=== PATIENT | male | born 2005 | race Caucasian/White ===

== ENCOUNTER 2023-08-27 19:58 | Emergency (ER) | payer BC ==
[~2023-08-27] VITALS: Ht 177.8 cm; Wt 72.7 kg
[2023-08-27 20:06] VITALS: TEMP 98
[2023-08-27 23:24] LABS: BASO % 0.5 % (0.0-2.0); EOS # 0.1 K/mm3 (0.0-0.7); EOS % 0.7 % (0.0-4.0); GRAN # 5.1 K/mm3 (1.4-6.5); GRAN % 62.9 % (42.2-75.2); HEMATOCRIT 46.4 % (36.0-47.0); HEMOGLOBIN 16.1 g/dl (12.5-16.1); LYMPH # 2.3 K/mm3 (1.2-3.4); LYMPH % 28.6 % (20.0-51.0); MEAN CELL VOLUME 90 fl (80.0-95.0); MEAN CORPUSCULAR HEMOGLOBIN 31 pg (26-32); MEAN CORPUSCULAR HGB CONC 35 g/dl (33.0-37.0); MEAN PLATELET VOLUME 8.6 fl (7.4-10.4); MONO # 0.6 K/mm3 (0.1-0.6); MONO % 7.1 % (1.7-9.3); PLATELET COUNT 229 K/mm3 (130-400); RED BLOOD COUNT 5.13 M/mm3 (4.20-5.60); REDCELL DISTRIBUTION WIDTH-CV 12.1 % (11.5-14.5)
[2023-08-27 23:39] LABS: LIPASE 53 U/L (8-78)
[2023-08-27] MEDS ORDERED: hydrOXYzine HCl 25 MG TAB PO ONE (23:45)
[2023-08-27] MEDS ORDERED: Acetaminophen 500 MG TAB PO ONE (23:45)
[2023-08-27] MEDS ORDERED: Ketorolac 30 MG/ML VIAL IV ONE (23:45)
[2023-08-27 23:46] LABS: TROPONIN-I < 0.010 ng/mL (0.00-0.033)
[2023-08-28 00:13] LABS: ALBUMIN 4.5 gm/dL (3.5-5.0); ALKALINE PHOSPHATASE 61 U/L (40-150); ANION GAP 12 mmol/L (7-16); AST,SGOT 11 U/L (5-34); BILIRUBIN,TOTAL 0.5 mg/dL (0.2-1.2); BLOOD UREA NITROGEN 10 mg/dL (9-21); CALCIUM 9.6 mg/dL (8.4-10.2); CARBON DIOXIDE 21 mmol/L (22-29); CHLORIDE 108 mmol/L (98-107); CREATININE, serum 0.83 mg/dL (0.72-1.25); GLUCOSE 82 mg/dL (70-99); POTASSIUM 3.7 mmol/L (3.5-4.5); SODIUM 141 mmol/L (136-145); TOTAL PROTEIN 6.8 gm/dL (6.2-8.1)
[2023-08-28 00:14] LABS: ALANINE AMINOTRANSFERASE < 6 U/L (0-55)
[2023-08-28 00:38] VITALS: BP 114/80; PULSE 52
[2023-08-29] MEDS ORDERED: BIOTIN2500 MCG PO (10:04)
[2023-08-29] MEDS ORDERED: ZYRTEC-D 5 MG-11 TER PO (10:05)
== END 2023-08-28 00:38 | disposition home or self-care (01) ==
LOC: COL.ER 19:58
PROVIDERS: Nurse Practitioner Primary Care
DX: R07.89 Other chest pain (principal)
CPT/HCPCS: J1885

== ENCOUNTER 2023-08-28 14:08 | Emergency (ER) | payer BC ==
[~2023-08-28] VITALS: Ht 177.8 cm; Wt 72.7 kg
[2023-08-28 21:57] VITALS: BP 120/73; PULSE 64; TEMP 98.2
[2023-08-29] MEDS ORDERED: BIOTIN2500 MCG PO (10:04)
[2023-08-29] MEDS ORDERED: ZYRTEC-D 5 MG-11 TER PO (10:05)
== END 2023-08-28 21:57 | disposition home or self-care (01) ==
LOC: COL.ER 14:08
DX: J93.83 Other pneumothorax (principal)

== ENCOUNTER 2023-08-29 09:39 | Emergency (ER) | payer BC ==
[~2023-08-29] VITALS: Ht 177.8 cm; Wt 72.7 kg
[2023-08-29] MEDS ORDERED: BIOTIN2500 MCG PO (10:04)
[2023-08-29] MEDS ORDERED: ZYRTEC-D 5 MG-11 TER PO (10:05)
[2023-08-29 11:15] VITALS: TEMP 98
[2023-08-29 12:42] VITALS: BP 120/81; PULSE 59
== END 2023-08-29 12:42 | disposition home or self-care (01) ==
LOC: COL.ER 09:39
DX: J93.83 Other pneumothorax (principal)

== ENCOUNTER 2023-10-04 21:24 | Inpatient (IN) | payer BC ==
[~2023-10-04] VITALS: Ht 177.8 cm; Wt 73.1 kg
[~2023-10-04 21:24] MED LIST: BIOTIN2500 MCG PO; ZYRTEC-D 5 MG-11 TER PO
[2023-10-05] VITALS (8 sets, daily range): BP systolic 110–129; BP diastolic 57–73; PULSE 44–63; TEMP 97.5–98
[2023-10-05] MEDS ORDERED: HYDROmorphone 0.5 MG/0.5 ML SYRINGE IV PRN (00:30)
[2023-10-05] MEDS ORDERED: LR 1,000 ML IV SCH (00:30)
[2023-10-05] MEDS ORDERED: Ibuprofen 600 MG TAB PO PRN (00:30)
[2023-10-05] MEDS ORDERED: oxyCODONE/Acetaminophen 5-325 MG TAB PO PRN (00:30)
[2023-10-05] MEDS ORDERED: Ondansetron 4 MG/2 ML VIAL IV PRN (00:30)
--- NOTE | 2023-10-05 03:55 | NUR ---
Patient arrived to the floor at 0206 with chest tube attached to water seal cannister, hooked to suction with occasional bubbling seen in chamber,A/Ox4, medrec reviewed, admission assessment done, attempted to do admission intake multiple times but unable to save it d/t computer error, rated his pain at 5/10, medicated with percocet, hospital policies orientated, denies further needs, call light and personal items within reach, will continue to monitor.
--- NOTE | 2023-10-05 06:21 | NUR ---
Patient resting in bed, eyes closed, looks comfortable,
--- NOTE | 2023-10-05 07:00 | NUR ---
Pt doing ok at shift change, just appears tired. Pt denies any needs at this time. Chest tube hooked to suction at this time
--- NOTE | 2023-10-05 08:30 | NUR ---
Pt sleeping off and on. Explained beginning of the day/shift is always busy, but then should hopefully be able to let him rest by mid morning. Dr Bethea has been in to see pt. Chest tube no longer hooked to suction.
--- NOTE | 2023-10-05 10:10 | NUR ---
PT resting with eyes closed, even non labored breathing.
--- NOTE | 2023-10-05 13:50 | NUR ---
Pt doing well at this time. His eating a boxed lunch. He stated he waited too long to order and was then getting hungry and not wanting to wait 45 minutes. Explained meals can be ordered at anytime and then scheduled to arrive if that would work better for him. Pt stated that his pain is 1-2 at rest and then goes to 5/10 with deep breaths. Pts mom at bedside and has been here for a while now. Pt denies any other needs, call light within reach
--- NOTE | 2023-10-05 14:00 | NUR ---
PATIENT RESTING UP IN BED WITH MOM AT BEDSIDE. TOLERATING GENERAL DIET. DENIES NEED FOR PAIN MEDS. APPLIED SCD'S TO BLE. NO OTHER NEEDS. CALL LIGHT IN REACH.
--- NOTE | 2023-10-05 14:06 | NUR ---
Social work student met with patient and mother Jesusita (ph#:[phone]) at bedside to discuss discharge planning. Patient lives in [place] and goes to [facility] for primary care. Patient also obtains his medications from [facility] with no difficulties affording them. Patient's mother reported she and his father are patient's DPOA-HC. Social work student offered to make a DPOA-HC in the hopsital but patient is not interested in doing that at this time. Patient does not use DME and is independent with ADLS. Patient is able to drive himself to and from appointments and has no concerns with returning home at time of discharge. Discharge plan: Home
--- NOTE | 2023-10-05 15:20 | NUR ---
PATIENT CALLED OUT REQUESTING SOMETHING FOR PAIN RATED AT 5/10 AT CHEST TUBE SITE. GAVE PRN PERCOCET, ONE TAB. SEE MAR.
--- NOTE | 2023-10-05 17:10 | NUR ---
Pt sitting up more and has been more active this afternoon. He has had multiple visitors and has been eating often. Pt having increase in pain with movement and when taking deep breath. PRN medications being given and pt being monitored. Pts brother and mom are at bedside at this time
[2023-10-06] VITALS (12 sets, daily range): BP systolic 111–134; BP diastolic 52–69; PULSE 44–68; TEMP 97.5–98.2
--- NOTE | 2023-10-06 08:36 | NUR ---
PT RESTING IN BED WITH PAIN 4/10 AND PAIN MEDICATION PROVIDED. STEADY GAIT TO BATHROOM. NO OUTPUT FROM CHEST TUBE. NO NEEDS AT THIS TIME. WILL CONTINUE TO MONTIOR.
--- NOTE | 2023-10-06 11:00 | NUR ---
VERBAL ORDERS TO PLACE CHEST TUBE WATER SEAL TO SUCTION 20. CHAMBER BUBBLED FOR A SHORT PERIOD OF TIME AND THEN STOPPED ALTOGETHER. DR. PARKER NOTIFIED AND ORDERS FOR REPEAT CHEST XRAY AT 1300. FAMILY AND PT EDUCATED. NO QUESTIONS AT THIS TIME. ORDERS TO INT FLUIDS, PO FLUIDS ENCOURAGED. WILL CONTINUE TO MONITOR.
--- NOTE | 2023-10-06 11:28 | NUR ---
INTERMITTENT BUBBLING IN CHAMBER. DR PARKER NOTIFIED AND CHECKED TUBUNG AT BEDSIDE. NO ISSUES IDENTIFIED. VERBAL ORDERS FOR REPEAT CHEST XRAY 10/06 AT 0700.
--- NOTE | 2023-10-06 12:01 | NUR ---
D: Initial visit: Crate Icer stopped by room on rounds. Pt was resting and content with mom and sister in the room. A: Pt has no needs right now. He is one of 3 siblings going to [facility]. Family and pt appreciated the visit. P: Crate Icer informed them that if they needed anything from the derrick worker area to let their nurse know. Crate Icer will follow up as needed.
[2023-10-06] MEDS ORDERED: Docusate Sodium 100 MG CAP PO SCH (12:58)
[2023-10-06] MEDS ORDERED: Acetaminophen 325 MG TAB PO PRN (15:15)
--- NOTE | 2023-10-06 20:00 | NUR ---
PATIENT IS A&O. VSS. DENIES SOA, N/V OR CHEST PAIN. PATIENT ONLY REPORTS SOME DISCOMFORT WITH ACTIVITY AT CHEST TUBE SITE. RIGHT CHEST TUBE TO WATER SEAL. RIGHT LUNG GONZALEZ ARE CTA. LEFT UPPER LOBES ARE CLEAR, DEMINISHED MID-LOW LOBES. 1 ASSIST WITH ACTIVITY DUE TO CHEST TUBE. HEAD TO TOE ASSESSMENT COMPLETE. MOM LEAVING FOR THE NIGHT. PATIENT RESTING UP IN BED WITH NO OTHER NEEDS. CALL LIGHT IN REACH.
[2023-10-07] VITALS (11 sets, daily range): BP systolic 103–155; BP diastolic 61–77; PULSE 47–61; TEMP 97.5–97.9
--- NOTE | 2023-10-07 07:17 | NUR ---
Pt laying in bed. A&Ox4. VSS. S1S2. Lung sounds are clear on left side. Right lung is clear in bases, diminished at appex. ABD is rounded, soft, non-tender. Palpable pulses in all extremities with normal strength. Pt denies pain, n/v, dizziness at this time. Pt reports feeling dizzy after pain meds were given last night. Nothing since. IV in L AC is INT and patent. Pt has call light in reach and uses appropriately.
--- NOTE | 2023-10-07 07:17 | NUR ---
Pt laying in bed. A&Ox4. VSS. S1S2. Lung sounds are clear on left side. Right lung is clear in bases, diminished at appex. ABD is rounded, soft, non-tender. Palpable pulses in all extremities with normal strength. Pt denies pain, n/v, dizziness at this time. Pt reports feeling dizzy after pain meds were given last night. Nothing since. IV in L AC is INT and patent. Chest tube insertion site in upper R chest is CDI. tube has small amount of faint yellow drainage. Chest tube is set to water seal on -20 suction. Pt has call light in reach.
--- NOTE | 2023-10-07 08:26 | NUR ---
chest tube placed off suction per dr lyons's order
--- NOTE | 2023-10-07 16:40 | NUR ---
VORB by Dr Bethea to place pt back on suction due to cxr results.
--- NOTE | 2023-10-07 19:00 | NUR ---
Pt sitting in chair at bedside eating dinner, mom at bedside. Her questions were answered at this time.
--- NOTE | 2023-10-07 21:00 | NUR ---
PT IN BED, DENIES NEED FOR STOOL SOFTNER OR PAIN MEDS AT THIS TIME. RT UPPER CHEST DRSG FOR SMALL BARREL CHEST TUBE CHANGED D/T OLD BLEEDING. NEW OCCLUSIVE PLACED. HAS INT TO LAC. PT INDEPENDENT IN ROOM. CHEST TUBE TO SX, MINIMAL CLEAR YELLOW FLUID IN CANNISTER.
[2023-10-08] VITALS (12 sets, daily range): BP systolic 117–137; BP diastolic 61–68; PULSE 47–59; TEMP 97.6–98
--- NOTE | 2023-10-08 08:00 | NUR ---
pt a&ox4 returning to bed from bathroom. pt rates pain a 3/10, ibuprofen given per emar. denies sob. chest tube to suction. dressing is cdi. INT to left ac patent. pt denies needs at this time. call light in reach.
--- NOTE | 2023-10-08 19:00 | NUR ---
PT EATING DINNER, FAMILY AT BEDSIDE. RT UPPER CHEST TUBE REMAINS TO LCS. DRSG D/I. DENIES NEEDS AT THIS TIME.
--- NOTE | 2023-10-08 20:30 | NUR ---
PT ASKING FOR ZYRTEC, ORDER FROM DR PARKER. FAMILY REMINDED OF VISITING HOURS.
[2023-10-08] MEDS ORDERED: Cetirizine 10 MG TAB PO SCH (20:48)
--- NOTE | 2023-10-08 21:00 | NUR ---
HS MEDS GIVEN. FAMILY AGAIN REMINDED OF VISITING HOURS. PT IN NO DISTRESS, DENIES SOA. HAS CLEAR YELLOW/PINK FLUID IN PLEURVAC CONTAINER.
--- NOTE | 2023-10-08 21:30 | NUR ---
FAMILY LEAVES FOR THE NIGHT. PT INDEPENDENT IN ROOM.
[2023-10-09] VITALS (12 sets, daily range): BP systolic 112–132; BP diastolic 63–76; PULSE 42–63; TEMP 97.5–98.1
--- NOTE | 2023-10-09 04:00 | NUR ---
PT RESTING IN BED, DENIES NEED FOR PAIN MEDS AT THIS TIME. CT REMAINS TO SUCTION.
--- NOTE | 2023-10-09 07:49 | NUR ---
Patient sleeping soundly. Breathing unlabored. Suction set up to chest tube per orders. Will monitor
--- NOTE | 2023-10-09 09:18 | NUR ---
Patient sat up in bed. Encouraged to order breakfast. He reports elevated pain with activity, but has been able to rest in bed with minimal pain. Motrin PRN given with snack. He reports the pain is the same as its been, not a new or different pain. Patient reports no Bowel movement since arrival to hospital. to be notified for orders. Patient does report passing flatus. Chest tube drg intact. Remains to 20cm suction per orders with dry seal chamber. Will monitor closely
[2023-10-09] MEDS ORDERED: Polyethylene Glycol 3350 17 GM PDS PO SCH (09:33)
[2023-10-09] MEDS ORDERED: Magnes Hydrox (MOM) 80 MG/ML 30 ML CUP PO PRN (09:45)
--- NOTE | 2023-10-09 09:56 | NUR ---
rounding, plan of care being reviewed. Xray made aware of orders and chest xray being completed with at bedside. called and orders obtained for constipation. Student nurse assisting with cares
--- NOTE | 2023-10-09 15:08 | NUR ---
Dr.Wolfe watson, plan of care reviewed. Patient denies needs. His mother at bedside.
--- NOTE | 2023-10-09 18:30 | NUR ---
Bedside report received from RACHELLE Larsen. Pt is awake in bed resting with no complaints. Pt mom at bedside. Chest tube to Rt side intact with no complications. Pt requesting additional cetrizine stating he is having some sneezing. This nurse contacted Dr. Valentine and obtained one dose order of Benadryl 25 mg PO using repeat back method. Dr. Valentine confirmed. Pt stated he is okay with Benadryl at bedtime. Pt has no other complaints at this time. Call light within reach.
--- NOTE | 2023-10-09 18:33 | NUR ---
Patient resting in bed, mother at bedside. Offered to ambulate halls with patient, but he has not interest. He wore scds briefly and then requested they be removed. Continues to encourage IS use. Int. Chest to to DD. Will report off to nightnurse
[2023-10-09] MEDS ORDERED: diphenhydrAMINE 25 MG CAP PO ONE (21:00)
--- NOTE | 2023-10-09 21:26 | NUR ---
Shift assessment completed. VSS. Pt reports no pain at this time. Chest tube in place at dependent drainage with minimal yellow draiange. Chest tube dressing intact with no swelling, redness, or drainage. INT to Lt forearm patent with no swelling, redness, or drainage. Pt family at bedside. Pt has no request at this time. Call light within reach.
[2023-10-10] VITALS (10 sets, daily range): BP systolic 115–128; BP diastolic 63–69; PULSE 46–60; TEMP 97.5–98.3
--- NOTE | 2023-10-10 09:36 | NUR ---
Patient resting in bed. rounded and plan of care reviewed. Chest tube remains to DD and xray ordered for this afternoon. Patient not interesting in brekfast. Denies needing pain medication. Will monitor
--- NOTE | 2023-10-10 12:33 | NUR ---
Patient up to the sink, assisted patient to wash his hair in the sink. Dray Driver assisted to change to fresh linens. Patient mother at bedside. Questions answered. CHest tube remains to DD. Will monitor
--- NOTE | 2023-10-10 17:00 | NUR ---
rounded after reviewing chest xray and he removed chest tube. Patient tolerated well. Will monitor.
--- NOTE | 2023-10-10 18:30 | NUR ---
Patient has done well post chest tube removal. Denies pain or SOB. made aware and discharge orders obtained. Patient ready to leave hospital. Discharge education given to patient and his mother. Int DC. We reviewed imporance of calling Thursday morning for a follow up appt and follow up chest xray as well. We discussed signs and symptoms and when to call doctor or seek medical attention. Medication list reviewed with over the counter medications to treat pain if needed. All questions answered for patient and his mother. They verbalize understanding. Patient ambulated out with all belongings, his mother and twin brother taking him home.
== END 2023-10-10 19:09 | disposition home or self-care (01) | DRG 201 ==
LOC: COL.ER 21:24 → SURG 10-05 00:36
PROVIDERS: ADMIT Surgery
PROC: 0W9930Z Drainage of Right Pleural Cavity with Drainage Device, Percutaneous Approach (ICD-10-PCS; principal; 2023-10-05)
DX: J93.83 Other pneumothorax (principal)
CPT/HCPCS: A7041; A9284; J1170; J2405; J7120